=== PATIENT | male | born 1985 ===

== ENCOUNTER 2024-12-18 08:49 | Outpatient (AMB) | payer OTHER, SELFPAY ==
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
[2024-12-18 08:54] VITALS: BMI 27.5
== END 2024-12-18 09:26 | disposition home or self-care (01) ==
LOC: HO.HOS 08:50
DX: M77.11 Lateral epicondylitis, right elbow (principal)
CPT/HCPCS: 20551; 99203

== ENCOUNTER → 2024-12-18 08:49 | Outpatient (BNVA) | payer OTHER, SELFPAY | DX: M77.11 Lateral epicondylitis, right elbow (principal) | CPT/HCPCS: 20551; J1100; J2003 ==